=== PATIENT | female | born 1945 | race Caucasian/White ===

== ENCOUNTER → 2016-07-22 | Outpatient (CLI) | payer OTHER, MEDICARE ==
[~2016-07-22] MED LIST: FURO-85 PO; LECI1200 PO; METO50TA7 PO; MULTTAB58 PO; OMEGCAP2 PO; PANT40TA PO
--- NOTE | 2016-07-22 13:15 | DIAGNOSTIC IMAGING REPORT ---
RENAL ULTRASOUND HISTORY: Nausea. Pain renal insufficiency. R82.3 [id number] COMPARISON: 10/07/2012 FINDINGS: Right kidney: Maximum dimension 9.4 cm. No evidence for hydronephrosis. Normal corticomedullary differentiation and cortical thickness. Left kidney: Maximum dimension 9.3 cm. No evidence for hydronephrosis. Normal corticomedullary differentiation and cortical thickness. Bladder: No bladder wall thickening. The bilateral ureteral jets were identified. IMPRESSION: Normal renal ultrasound. Electronically signed by: Christiano Aragon M.D. 07/22/2016 1:14 PM Dictated Date/Time: 07/22/2016 1:13 PM
[2016-07-22 13:35] LABS: HEMATOCRIT 39.4 % (37-47); MEAN CELL VOLUME 86.2 fL (80-100); MEAN CORPUSCULAR HEMOGLOBIN 28.2 pg (25-34); MEAN CORPUSCULAR HGB CONC 32.7 g/dl (32-36); MEAN PLATELET VOLUME 9.9 fL (7.4-10.4); PLATELET COUNT 239 K/uL (130-400); RED BLOOD COUNT 4.57 M/uL (4.2-5.4); WHITE BLOOD COUNT 7.73 K/uL (4.8-10.8)
[2016-07-22 13:42] LABS: URINE APPEARANCE CLEAR (CLEAR); URINE BILIRUBIN NEG (NEG); URINE COLOR YELLOW; URINE EPITHELIAL CELL AUTO >30 /lpf (0-5); URINE NITRITE NEG (NEG); URINE PH 5.5 (4.5-7.5); URINE SPECIFIC GRAVITY 1.018 (1.000-1.030); UROBILINOGEN NEG (NEG); ZZUR CULT IF INDIC CLEAN CATCH YES
[2016-07-22 13:53] LABS: MANUAL MICROSCOPIC REQUIRED? NO; REVIEW REQ? NO
[2016-07-22 14:03] LABS: ALT/SGPT 20 U/L (12-78); AST/SGOT 17 U/L (15-37); BLOOD UREA NITROGEN 17 mg/dl (7-18); BUN/CREATININE RATIO 19.9 (10-20); CALCIUM 9.1 mg/dl (8.5-10.1); CARBON DIOXIDE 29 mmol/L (21-32); CHLORIDE 105 mmol/L (98-107); CREATININE 0.86 mg/dl (0.60-1.20); GLUCOSE 80 mg/dl (70-99); POTASSIUM 3.7 mmol/L (3.5-5.1); SODIUM 142 mmol/L (136-145)
[2016-07-22 14:06] LABS: ALKALINE PHOSPHATASE 68 U/L (45-117)
== END | disposition home or self-care (01) ==
LOC: C.ULTR 11:57
PROVIDERS: ATTEND Internal Medicine Nephrology
DX: R82.3 Hemoglobinuria (principal)

== ENCOUNTER → 2016-11-28 | Outpatient (CLI) | payer OTHER, MEDICARE ==
[2016-11-28 13:53] LABS: LYME DISEASE AB IGG NEG (NEG)
[2016-11-28 13:55] LABS: LYME DISEASE AB IGM EQUIVOCAL (NEG)
[2016-12-03 09:07] LABS: 18KDIGG BAND NONREACTIVE (NONREACTIVE); 23KDIGG BAND NONREACTIVE (NONREACTIVE); 23KDIGM BAND REACTIVE (NONREACTIVE); 28KDIGG BAND NONREACTIVE (NONREACTIVE); 30KDIGG BAND NONREACTIVE (NONREACTIVE); 39KDIGG BAND NONREACTIVE (NONREACTIVE); 39KDIGM BAND NONREACTIVE (NONREACTIVE); 41KDIGG BAND NONREACTIVE (NONREACTIVE); 41KDIGM BAND NONREACTIVE (NONREACTIVE); 45KDIGG BAND NONREACTIVE (NONREACTIVE); 58KDIGG BAND REACTIVE (NONREACTIVE); 66KDIGG BAND NONREACTIVE (NONREACTIVE); 93KDIGG BAND NONREACTIVE (NONREACTIVE)
== END | disposition home or self-care (01) ==
LOC: C.LABBC 11:09
PROVIDERS: ATTEND Internal Medicine
DX: M25.50 Pain in unspecified joint (principal)

== ENCOUNTER → 2017-03-24 | Outpatient (CLI) | payer OTHER, MEDICARE ==
--- NOTE | 2017-03-24 09:12 | DIAGNOSTIC IMAGING REPORT ---
CT SCAN OF THE CHEST WITHOUT IV CONTRAST CLINICAL HISTORY: Follow-up pulmonary nodules. COMPARISON STUDY: Chest CT scans dated 05/20/2016 and 01/07/1715. TECHNIQUE: CT scan of the thorax was performed from the thoracic inlet to the upper abdomen. Images are reviewed in the axial, sagittal, and coronal planes. IV contrast was not administered for this examination as per the referring clinician. A dose lowering technique was utilized adhering to the principles of ALARA. CT DOSE: 593.78 mGy.cm FINDINGS: Thyroid: Moderately atrophic. Thoracic aorta: The thoracic aorta is normal in caliber and demonstrates standard 3-vessel arch anatomy. Heart: The heart is enlarged and without pericardial effusion. Lungs and pleural spaces: A fat-containing Bochdalek hernia is seen at the right lung base. There is no airspace consolidation or pleural effusion. The trachea and central airways are clear. Scarring is present at the anterior right lung base. There is a 9.5 mm irregular pulmonary nodule in the right middle lobe seen on axial image #141. This has increased in size from 01/07/2015 when it measured 6.5 mm. A 4 mm pulmonary nodule at the right lung base seen on image #194, a 2 mm right lower lobe nodule seen on image #181, and a 9 mm right upper lobe nodule within a region of scarring similar image #110 are unchanged from 2015. Mediastinum: There is no mediastinal lymphadenopathy. Bharati: Not well assessed without IV contrast. There are calcified left hilar nodes. Axillae: There is no axillary lymphadenopathy. Upper abdomen: There is a moderate to large hiatal hernia. Approximately one third of the stomach is located in the thoracic cavity. Cholecystectomy clips are noted. There are numerous calcified splenic granulomas. Skeletal structures: The skeletal structures are osteopenic. Degenerative change is seen throughout the thoracic spine. Chronic postoperative versus posttraumatic changes identified in the right sided ribs. No lytic or blastic bony lesions are seen. IMPRESSION: 1. An irregular 9.5 mm nodule in the right middle lobe has slightly increased in size from 05/20/2016, and has progressively increased in size dating back to 12/31/1714 and measured 6.5 mm. This nodule is indeterminant, but the progressive increase in size is concerning. Surgical consultation is advised as neoplasm is to be excluded. 2. Additional pulmonary nodules in the right lung have not significant changed dating back to 12/31/1714. These are pathologically indeterminant but of low suspicion. 3. Scarring is present at the right lung base. No airspace consolidation or pleural effusion is seen. 4. Cardiomegaly and hiatal hernia. 5. Additional findings as above. Electronically signed by: Tai Jacome M.D. 03/24/2017 9:11 AM Dictated Date/Time: 03/24/2017 9:01 AM
== END | disposition home or self-care (01) ==
LOC: C.CTS 08:45
PROVIDERS: ATTEND Internal Medicine Pulmonary Disease
DX: R91.8 Other nonspecific abnormal finding of lung field (principal); I51.7 Cardiomegaly; K44.9 Diaphragmatic hernia without obstruction or gangrene

== ENCOUNTER 2017-05-26 16:39 | Emergency (ER) | payer OTHER, MEDICARE ==
[~2017-05-26] VITALS: Ht 236.2 cm; Wt 104.4 kg
[2017-05-26 16:41] VITALS: TEMP 36.5; Ht 236.2 cm; Wt 104.4 kg
[2017-05-26] MEDS ORDERED: ACETAMINOPHEN 500 MG TAB PO STA (17:03)
[2017-05-26] MEDS ORDERED: ASPI81TA28 PO (17:07)
--- NOTE | 2017-05-26 17:24 | EMERGENCY ROOM VISIT NOTE ---
ED Visit Note First contact with patient: 16:45 CHIEF COMPLAINT: Left groin pain HISTORY OF PRESENT ILLNESS: This 71-year-old female patient presents to the emergency department, ambulatory, complaining of pain in her left groin, radiating into the left buttock. The patient states she was carrying a basket full of towels in the hallway, when she tripped on a toy block which was left in the middle of the floor. The patient did not fall, but states she twisted her left leg, and is now experiencing pain in the groin. She states the pain is radiating from the groin, in her left upper leg, and into the buttock. She occasionally gets radiating pain down the left posterior leg to the knee. She describes the pain as a pulling sensation. She denies any numbness or tingling. The patient denies any weakness or falling. She did take 400 mg ibuprofen at approximately 2:00 this afternoon. The patient denies any previous injury to her left leg or groin. She rates the pain 9/10, and states ibuprofen did help mildly. The patient did not fall, and there was no loss of consciousness. The patient did not hit her head. REVIEW OF SYSTEMS: A 6 system review of systems was performed with positives and pertinent negatives listed in the history of present illness. All other systems were reviewed and are negative. ALLERGIES: None MEDICATIONS: Aspirin, albuterol, Protonix, Toprol PMH: Hypertension, GERD SOCIAL HISTORY: The patient lives locally with family. She denies drug, alcohol , tobacco use. PHYSICAL EXAM: VITALS: Vitals are noted on the nurse's note and reviewed by myself. Vital signs stable. GENERAL: This is a 71-year-old white female, in no acute distress, nondiaphoretic, well-developed well-nourished. SKIN: The skin was without rashes, erythema, edema, or bruising. There is no tenting of the skin. Capillary reflex less than 2 seconds. HEAD: Normocephalic atraumatic. NECK: Supple without nuchal rigidity. No lymphadenopathy. No thyromegaly. Cervical spine is nontender. No JVD. HEART: Regular rate and rhythm without murmurs gallops or rubs. LUNGS: Clear to auscultation bilaterally without wheezes, rales or rhonchi. No dullness to percussion. No retractions or accessory muscle use. ABDOMEN: Positive bowel sounds x 4. Normal tympanic percussion. Soft, nontender, without masses or organomegaly. Adams sign negative. No guarding or rebound tenderness. MUSCULOSKELETAL: No muscle atrophy, erythema, or edema noted of the back. There is no tenderness over the lumbar spinous processes. There is no tenderness over the paraspinous muscles bilaterally. There is no tenderness over the thoracic spine or paraspinous muscles. There are no muscle spasms present. The patient is slow to move around with maximum tenderness with with position changes, lying to sitting, sitting to lying. Positive straight leg raise test on the left for paresthesias along the sciatic nerve. There is tenderness in the groin region, and tenderness posteriorly just distal to the buttock. This is midline of the posterior thigh. Palpation does elicit a sharp, tingling sensation radiating down the posterior aspect of the left leg to the knee. NEURO: Patient was alert and oriented to person place and time. Normal sensation to light and sharp touch. Deep tendon reflexes 2+ in the lower extremities. Dorsalis pedis pulse 2+ bilaterally. Heel and toe walking is normal. EMERGENCY DEPARTMENT COURSE: The patient was seen and evaluated as above. Her symptoms are consistent with a muscular strain. I do suspect she twisted and pulled the muscles of her groin, causing her ongoing pain. I suspect some muscle spasms and inflammation which could be causing the sciatic pain at this time. I encouraged the patient to use scheduled anti-inflammatory medications with Tylenol intermittently as needed for pain. I did offer the patient pain medication, and she declines. I had a long discussion with the patient and her at bedside regarding the mechanism of injury, and her symptoms at this time. I discussed with the patient that I do not have a high suspicion for bony injury or fracture, and do not recommend x-rays at this time. The patient and her are in agreement with the plan. The patient was given 1 g Tylenol by mouth. Discharge instructions reviewed, and the patient was discharged home in good condition. The patient was independently seen and evaluated by Dr. Valenzuela. I attest that I have personally reviewed the patient's current medication list. Patient was found to have normal blood pressure on screening and does not require follow-up. DIFFERENTIAL DIAGNOSIS: Sprain, strain, contusion, sciatica, muscle spasms, hip fracture, and others DIAGNOSIS: Groin strain Problem List Medical Problems: (1) Hypertension Status: Chronic (2) Lyme disease Status: Chronic Current/Historical Medications Scheduled Aspirin (Aspirin Ec), 81 MG PO DAILY Lecithin (Lecithin), 1,200 MG PO DAILY Metoprolol Succ (Toprol Xl) (Toprol-Xl), 50 MG PO DAILY Multiple Vitamin (Multivitamin), 1 TAB PO DAILY [place]-3 Fatty Acids (Fish Oil), 1 CAP PO DAILY Pantoprazole (Protonix), 40 MG PO DAILY Scheduled PRN Furosemide (Lasix), 20 MG PO DAILY PRN for Fluid Retention Allergies Coded Allergies: Sulfa Drugs (Verified Allergy, Mild, HIVES, 05/26/17) Vital Signs Date Time Temp Pulse Resp B/P (MAP) Pulse Ox O2 Delivery O2 Flow Rate FiO2 05/26/17 17:59 80 20 160/74 98 05/26/17 16:41 36.5 73 18 179/85 99 Room Air Medications Administered Medications (Trade) Dose Ordered Sig/Gertrude Route Start Time Stop Time Status Last Admin Dose Admin Acetaminophen (Tylenol Tab) 1,000 mg NOW STAT PO 05/26/17 17:03 05/26/17 17:04 DC 05/26/17 17:19 1,000 MG Departure Information Impression Primary Impression: Left leg pain Additional Impression: Strain of other muscle(s) and tendon(s) at lower leg level, left leg, initial encounter Dispostion Home / Self-Care Condition GOOD Referrals Blanca Marin M.D. (PCP) Patient Instructions ED Strain Groin, My [facility] Additional Instructions You were seen in the emergency department today for left leg pain. Based on her symptoms and mechanism of injury, I do suspect a strain of the muscles in the leg and groin, and not a bony injury or fracture. Ibuprofen(Motrin, Advil) may be used for fever or pain. Use 600mg every six to eight hours as needed. Take with food. Avoid using more than 2400mg in a 24 hour period. Do not use 2400mg per day for more than three consecutive days without physician direction. Prolonged inappropriate use can lead to stomach upset or ulcers. (AND/OR) Acetaminophen(Tylenol) may be used for fever or pain. Use 1000mg every six hours as needed. Avoid using more than 3000mg in a 24 hour period. *You may alternate these medications every 3-4 hours for increased pain control. Use ice to help with inflammation and pain for the first 3 days. Use a barrier device between the ice pack and your skin to prevent further skin injury. After the first few days, you may switch to heat. Use a cane or walker to help with ambulation and to avoid overuse of the muscles in the groin so they may heal. Follow-up in 2-3 days with your PCP for re-check and further evaluation of your symptoms. Return to the ED for weakness, numbness, tingling, discoloration of the leg, balance difficulties, or other concerning symptoms. Problem Qualifiers
[2017-05-26 17:59] VITALS: BP 160/74; PULSE 80; O2SAT 98
--- NOTE | 2017-05-26 19:05 | EMERGENCY ROOM VISIT NOTE ---
ED Visit Note First contact with patient: 16:45 I have personally evaluated this patient examined her and reviewed the pertinent labs and data. I have discussed the case with June Madrigal, the physician health education assistant and agree with the plan. Please refer to the PA note. This patient comes in after twisting her left leg. She has diffuse pain in her left upper leg and also in her calf. On my exam , she is neurologically and neurovascularly intact and has no swelling. There is no direct trauma so x- rays are unlikely helpful. I Think most likely this is musculoskeletal may be more of ligamentous injury. It is diffuse. She is able ambulate him and have her use ibuprofen and follow up with her regular doctor if this persists she may need further workup as an outpatient.
== END 2017-05-26 18:00 | disposition home or self-care (01) ==
LOC: C.EDB 16:40 → C.EDD 18:00
DX: S86.902A Unspecified injury of unspecified muscle(s) and tendon(s) at lower leg level, left leg, initial encounter (principal); X50.1XXA Overexertion from prolonged static or awkward postures, initial encounter; I10 Essential (primary) hypertension; K21.9 Gastro-esophageal reflux disease without esophagitis; Z79.82 Long term (current) use of aspirin